=== PATIENT | male | born 1995 | race Caucasian/White ===

== ENCOUNTER → 2017-01-08 | Outpatient (CLI) | payer BC ==
[~2017-01-08] MED LIST: CATHETER FLUSH 10 ML SYR IV PRN; IOHEXOL 350 MG/ML 100 ML (OMNIPAQUE 350) VIAL IV ONE; NS 100 ML (IVPB) BAG IV ONE
--- NOTE | 2017-01-08 10:22 | Diagnostic Imaging Report ---
PROCEDURE: CT neck soft tissue with contrast. TECHNIQUE: Multiple contiguous axial images were obtained through the neck after the administration of contrast. INDICATION: Submental adenopathy. There are no prior studies available for comparison. Reportedly the patient has palpable nodes on each side of the neck. On this study there are indeed several prominent lymph nodes evident on each side of the neck. There are also two contiguous 1.3-cm nodes in the submental region. The largest node on the left lies just anterior to the carotid bifurcation and measures approximately 1.5 cm in size. The largest node on the right is at the same level and measures 1.3 cm. There are a few other subcentimeter nodes on each side of the neck, particularly on the left. There is no mass or abscess identified. The left masseter muscle does seem slightly more prominent than the right although there is no distortion of the subcutaneous fat in this area. Even so, there may be mild inflammation of the left masseter muscle. The parotid and submandibular glands are generally unremarkable. The thyroid gland is homogeneous and not enlarged. The bone windows are unremarkable for a fracture or for a destructive lesion. There is mild dextroscoliosis of the cervicothoracic junction. The intracranial contents and the lung apices where visualized are unremarkable for an acute abnormality. IMPRESSION: 1. There is no mass or abscess identified; however, there are slightly enlarged lymph nodes on each side of the neck and in the submental region. These nodes are nonspecific but are probably involved by an inflammatory/infectious process. If the adenopathy does not diminish, then a short-term (two to four-week) followup CT neck exam should be considered for further study. 2. There is slight prominence of the left masseter muscle when compared to the right. This is of uncertain etiology. 3. There is no other abnormality identified. These results were discussed with Dr. Torres. Dictated by: Dictated on workstation # [id number]
== END ==
LOC: RAD 08:46
PROVIDERS: ATTEND Internal Medicine
DX: R59.0 Localized enlarged lymph nodes (principal)
CPT/HCPCS: 70491